=== PATIENT | female | born 2005 | race Two or more races ===

== ENCOUNTER 2024-10-11 14:20 | Outpatient (CLI) | payer OTHER | END 2024-10-11 14:30 | disposition home or self-care (01) | LOC: PPH VACUNA 14:20 | PROVIDERS: ATTEND Emergency Medicine Pediatric Emergency Medicine | DX: Z23 Encounter for immunization (principal) ==

== ENCOUNTER 2025-03-26 18:04 | Emergency (ER) | payer OTHER ==
[~2025-03-26] VITALS: Ht 154.9 cm; Wt 47.6 kg
[2025-03-26] MEDS ORDERED: ELVITEG/COB/EMTRI/TENOFO DISOP 1 UDTAB TABLET PO ONE ×2 (22:45→23:54)
== END 2025-03-27 02:00 | disposition home or self-care (01) ==
LOC: ER 18:04
DX: S61.242A Puncture wound with foreign body of right middle finger without damage to nail, initial encounter (principal); Y65.8 Other specified misadventures during surgical and medical care; Y82.8 Other medical devices associated with adverse incidents; Y92.238 Other place in hospital as the place of occurrence of the external cause; W46.1XXA Contact with contaminated hypodermic needle, initial encounter

== ENCOUNTER 2025-04-04 14:00 | Outpatient (CLI) | payer OTHER | END 2025-04-04 14:10 | disposition home or self-care (01) | LOC: PPH VACUNA 14:00 | PROVIDERS: ATTEND Emergency Medicine Pediatric Emergency Medicine | DX: Z23 Encounter for immunization (principal) ==